=== PATIENT | female | born 1945 ===

== ENCOUNTER 2019-02-21 08:49 | Emergency (ER) | payer MEDICARE ==
[~2019-02-21] VITALS: Ht 154.9 cm; Wt 60.0 kg
[2019-02-21 09:08] VITALS: BP 163/76
== END 2019-02-21 15:33 | disposition left against medical advice (07) ==
LOC: ER 08:50
DX: R10.9 Unspecified abdominal pain (principal); R19.7 Diarrhea, unspecified; Z53.21 Procedure and treatment not carried out due to patient leaving prior to being seen by health care provider